=== PATIENT | male | born 1940 | race Caucasian/White ===

== ENCOUNTER 2022-03-09 13:26 | Inpatient (IN) ==
[2022-03-09 14:56] LABS: Basophils # 0.2 K/mcL (0.0-0.2); Basophils % 1.7 %; Eosinophils # 0.2 K/mcL (0.0-0.6); Eosinophils % 1.9 %; Hematocrit 34.4 % (37.5-50.1); Hemoglobin 10.9 g/dL (12.9-16.9); Immature Granulocytes % 0.7 % (0-4); Lymphocytes # 1.1 K/mcL (0.6-4.6); Lymphocytes % 11.4 %; Mean Corpuscular HGB Conc 31.7 g/dL (31.6-35.5); Mean Corpuscular Hemoglobin 32.1 pg (28.0-33.3); Mean Corpuscular Volume 101.2 fL (83.0-100.0); Mean Platelet Volume 9.9 fL (9.4-12.4); Monocytes # 0.9 K/mcL (0.0-1.3); Monocytes % 9.2 %; Neutrophils # 7.1 K/mcL (1.6-8.9); Platelet Count 447 K/mcL (140-400); Red Cell Distribution Width 15.4 % (11.5-14.5); Segmented Neutrophils % 75.1 %; White Blood Count 9.4 K/mcL (4.3-11.1)
[2022-03-09 15:19] LABS: BUN/Creatinine Ratio 22 (6-26); Blood Urea Nitrogen 26 mg/dL (8-23); Carbon Dioxide 30 mEq/L (23-29); Chloride 102 mEq/L (98-107); Glucose 85 mg/dL (70-105); Osmolality,Calculated 290 (280-300); Potassium 4.4 mEq/L (3.5-5.1); Sodium 138 mEq/L (136-145); Troponin I 0.03 ng/mL (< 0.04); eGFR For African Americans > 60 (> 60); eGFR For Non-African Americans 59 (> 60)
[2022-03-09 19:49] LABS: Albumin 3.2 g/dL (3.5-5.7); Albumin/Globulin Ratio 0.8 (1.1-2.2); Bilirubin,Direct 0.2 mg/dL (0.0-0.2); Bilirubin,Indirect 0.5 mg/dL (0.0-1.0); Bilirubin,Total 0.7 mg/dL (0.3-1.0); Globulin 4.1 g/dL (2.4-3.5); Total Protein 7.3 g/dL (6.4-8.9)
[2022-03-09] MEDS ORDERED: cefTRIAXone 1,000 MG in 0.9 % Sodium Chloride Mini Bag 100 ML IVPB ONE (20:53)
[2022-03-09] MEDS ORDERED: Azithromycin 500 MG in 0.9 % Sodium Chloride 250 ML IVPB ONE (20:54)
[2022-03-09] MEDS ORDERED: Iopamidol - 370 500 ML MLS IVP ONE (20:55)
[2022-03-09] MEDS ORDERED: Melatonin 3 MG TABLET PO PRN (21:42)
[2022-03-09] MEDS ORDERED: Ondansetron 4 MG/2 ML VIAL IVP PRN (21:42)
[2022-03-09] MEDS ORDERED: Naloxone 0.4 MG/ML INJ IVP PRN (21:42)
[2022-03-09] MEDS ORDERED: *HR* HYDROcodone/Acet 5/325 mg TABLET PO PRN (21:42)
[2022-03-09] MEDS ORDERED: Acetaminophen 325 MG TABLET PO PRN (21:42)
[2022-03-09] MEDS ORDERED: methylPREDNISolone 125 MG/2 ML VIAL IVP ONE (22:34)
[2022-03-09] MEDS: Ipratropium/Albuterol Neb 3 ML IH SCH (22:52)
[2022-03-09] MEDS ORDERED: Saline Nasal Spray 44 ML BOTTLE NS PRN (22:59)
[2022-03-09] MEDS ORDERED: Saliva Stimulant 44.3ml BOTTLE PO PRN (22:59)
[2022-03-10 01:42] LABS: Basophils # 0.1 K/mcL (0.0-0.2); Basophils % 1.3 %; Eosinophils % 0.5 %; Hematocrit 32.3 % (37.5-50.1); Hemoglobin 10.4 g/dL (12.9-16.9); Immature Granulocytes % 0.6 % (0-4); Lymphocytes % 11.5 %; Mean Corpuscular HGB Conc 32.2 g/dL (31.6-35.5); Mean Corpuscular Hemoglobin 32.2 pg (28.0-33.3); Mean Platelet Volume 9.8 fL (9.4-12.4); Monocytes # 0.3 K/mcL (0.0-1.3); Monocytes % 3.2 %; Platelet Count 376 K/mcL (140-400); Red Blood Count 3.23 M/mcL (4.19-5.50); Red Cell Distribution Width 15.3 % (11.5-14.5); Segmented Neutrophils % 82.9 %; White Blood Count 8.5 K/mcL (4.3-11.1)
[2022-03-10 01:55] LABS: Alanine Aminotransferase 11 Units/L (7-52); Albumin 2.8 g/dL (3.5-5.7); Albumin/Globulin Ratio 0.7 (1.1-2.2); Alkaline Phosphatase 138 Units/L (34-104); Aspartate Amino Transferase 19 Units/L (13-39); BUN/Creatinine Ratio 22 (6-26); Bilirubin,Total 0.6 mg/dL (0.3-1.0); Blood Urea Nitrogen 22 mg/dL (8-23); Calcium 8.7 mg/dL (8.6-10.3); Carbon Dioxide 27 mEq/L (23-29); Chloride 102 mEq/L (98-107); Globulin 3.8 g/dL (2.4-3.5); Glucose 90 mg/dL (70-105); Magnesium 1.8 mg/dL (1.6-2.6); Osmolality,Calculated 285 (280-300); Phosphorous 2.9 mg/dL (2.7-4.5); Potassium 4.2 mEq/L (3.5-5.1); Sodium 136 mEq/L (136-145); Total Protein 6.6 g/dL (6.4-8.9); eGFR For African Americans > 60 (> 60); eGFR For Non-African Americans > 60 (> 60)
[2022-03-10 01:57] LABS: Adenovirus Not Detected (Not Detect); Coronavirus 229E Not Detected (Not Detect); Coronavirus HKU1 Not Detected (Not Detect); Coronavirus NL63 Not Detected (Not Detect); Coronavirus OC43 Not Detected (Not Detect)
[2022-03-10 01:59] LABS: Bordetella Pertussis Not Detected (Not Detect); Chlamydophila pneumoniae Not Detected (Not Detect); Human Metapneumovirus Not Detected (Not Detect); Human Rhinovirus/Enterovirus Not Detected (Not Detect); Influenza A Subtype 2009 H1 Not Detected (Not Detect); Influenza B Not Detected (Not Detect); Mycoplasma pneumoniae Not Detected (Not Detect); Parainfluenza Virus 1 Not Detected (Not Detect); Parainfluenza Virus 2 Not Detected (Not Detect); Parainfluenza Virus 3 Not Detected (Not Detect); Parainfluenza Virus 4 Not Detected (Not Detect); Respiratory Syncytial Virus Not Detected (Not Detect); SARS-CoV-2 DETECTED (Not Detect)
[2022-03-10 02:00] LABS: INR 1.3; Prothrombin Time 14.9 Seconds (9.4-12.1)
[2022-03-10 02:02] LABS: Activated Partial Thrombo Time 24.8 Seconds (26.0-36.0)
[2022-03-10 02:06] LABS: % Iron Saturation 11 % (20-55); Iron 26 mcg/dL (65-175); Transferrin 174 mg/dL (203-362)
[2022-03-10] MEDS: Ipratropium/Albuterol Neb 3 ML IH SCH ×6 (03:39→23:50)
[2022-03-10 04:05] LABS: Ferritin 135 ng/mL (20-250)
[2022-03-10 04:12] LABS: Folate 17.1 ng/mL (3.0-16.0); Vitamin B12 > 1500 pg/mL (250-1100)
[2022-03-10] MEDS ORDERED: *HR* Metoprolol 5 MG/5 ML VIAL IVP ONE (04:53)
[2022-03-10] MEDS: MethylPREDNISolone 40 MG/ML VIAL IVP SCH ×2 (05:29→12:03)
[2022-03-10] MEDS ORDERED: Azithromycin 500 MG VIAL ONE (07:43)
[2022-03-10] MEDS: Budesonide/Formoterol 160/4.5 1 PUFF INH IH SCH ×2 (07:45→20:16)
[2022-03-10] MEDS: Apixaban 5 MG TABLET PO SCH ×2 (07:50→20:04)
[2022-03-10] MEDS: Artificial Tears SOLN 15 ML BOTTLE BOTH EYES SCH ×2 (07:50→20:04)
[2022-03-10] MEDS: Multivit/Ca/Min/Fe/FA 1 TAB TABLET PO SCH (07:50)
[2022-03-10] MEDS: Lactobacillus 1 EACH CAP.SPRINK PO SCH ×2 (07:50→20:04)
[2022-03-10] MEDS ORDERED: Azithromycin 500 MG in 0.9 % Sodium Chloride 250 ML IVPB SCH (08:00)
[2022-03-10] MEDS ORDERED: cefTRIAXone 1,000 MG in 0.9 % Sodium Chloride Mini Bag 100 ML IVPB SCH (09:00)
[2022-03-10] MEDS ORDERED: Chlorhexidine Rinse 15 ML MOUTHWASH MM SCH (09:00)
[2022-03-10] MEDS: Celecoxib 200 MG CAPSULE PO SCH (13:16)
[2022-03-11] MEDS: Ipratropium/Albuterol Neb 3 ML IH SCH ×3 (03:52→11:07)
[2022-03-11] MEDS: Budesonide/Formoterol 160/4.5 1 PUFF INH IH SCH (07:16)
[2022-03-11] MEDS: Lactobacillus 1 EACH CAP.SPRINK PO SCH (07:30)
[2022-03-11] MEDS: Apixaban 5 MG TABLET PO SCH (07:30)
[2022-03-11] MEDS: Artificial Tears SOLN 15 ML BOTTLE BOTH EYES SCH (07:30)
[2022-03-11] MEDS: Multivit/Ca/Min/Fe/FA 1 TAB TABLET PO SCH (07:30)
[2022-03-11] MEDS: Celecoxib 200 MG CAPSULE PO SCH (07:30)
[2022-03-11 07:41] VITALS: BP 109/67; PULSE 122; TEMP 97.4
[2022-03-11] MEDS ORDERED: predniSONE 20 MG TABLET PO SCH (09:00)
[2022-03-11] MEDS ORDERED: Furosemide 40 MG TABLET PO SCH (09:00)
[2022-03-11] MEDS ORDERED: Azithromycin 250 MG TABLET PO SCH (09:00)
[2022-03-11 10:44] VITALS: O2SAT 100
[2022-03-13 12:44] LABS: Mycoplasma pneumoniae IgG 0.83 U/L (<=0.09)
== END 2022-03-11 12:14 | disposition home health service (06) | DRG 189 ==
LOC: EMEROOARM 13:26 → 3BNU 13:26 → SUATTDRO 22:06 → 3BNU 23:18
PROVIDERS: ADMIT Internal Medicine; ATTEND Internal Medicine